=== PATIENT | female | born 1950 | race Caucasian/White ===

== ENCOUNTER 2017-02-08 08:00 | Inpatient (IN) | payer MEDICARE, OTHER ==
[~2017-02-08] VITALS: Ht 154.9 cm; Wt 71.3 kg
--- NOTE | ~2017-02-08 | DS ---
[facility]GE[facility] 66 Y [address] ROOM: [place] [address] LOCATION: [facility] ADMIT DATE: 02/15/2017 Discharge Summary DISCHARGE DATE: 02/17/2017 FAMILY PHYSICIAN: NICOLE LARSON ATTENDING PHYSICIAN: Jadon Zavaleta PRIMARY DIAGNOSIS: Osteoarthritis, right hip. SECONDARY DIAGNOSES: 1. Hyperlipidemia. 2. Depression. 3. History of anemia. 4. History of constipation. PROCEDURE PERFORMED: Right total hip arthroplasty. HISTORY: The patient is a 66-year-old female, who presents with advanced right hip degenerative joint disease and associated severely compromised activities of daily living. The patient has decided to proceed with total right hip arthroplasty after having been thoroughly counseled regarding the risks, benefits, limitations, and alternatives. Please refer to the outpatient clinic notes and admission history and physical for this patient. HOSPITAL COURSE: The patient underwent a total right hip arthroplasty on 02/15/2017 without complications. Spinal anesthesia plus subcutaneous and periarticular local anesthesia was utilized. The patient received 24 hours of perioperative prophylactic antibiotics and remained hemodynamically stable, neurovascularly intact throughout the entire hospital course. The postoperative prophylactic deep venous thrombosis prophylaxis consisted of Xarelto, early mobilization and pneumatic compression devices. Daily physical therapy for gait training, transfer training, and reinforcement of hip dislocation precautions were received. The patient progressed well in physical therapy. On the date of discharge, 02/17/2017, the incision at the hip was healing well and showed no signs of infection. DISPOSITION: DISCHARGE ACTIVITY: The patient is to bear weight as tolerated with strict hip dislocation precautions as instructed. There are to be no dressing changes. Dr. Zavaleta is to be notified immediately if there is any increased pain, fevers, chills, erythema, or drainage. DISCHARGE MEDICATIONS: 1. Xarelto 10 mg 1 tablet p.o. daily for 12 days for postoperative DVT prophylaxis. PATIENT'S NAME: DAVE [facility]URDA [facility] AGE: 66 Y [address] ROOM: [place] [address] LOCATION: [facility] ADMIT DATE: 02/15/2017 Discharge Summary DISCHARGE DATE: 02/17/2017 FAMILY PHYSICIAN: NICOLE LARSON ATTENDING PHYSICIAN: Jadon Zavaleta 2. Percocet 5/325 mg 1 to 2 tablets p.o. every 4 hours p.r.n. for pain. 3. Zofran 8 mg 1 tablet p.o. every 8 hours p.r.n. for nausea and vomiting. She was then instructed to continue all her other preadmission medications as instructed by her internal medicine doctor. FOLLOWUP: Followup appointment is to be with Dr. Zavaleta's office on 02/22/2017 for her initial postoperative evaluation. VINITA RUIZ PA-C FOR MD ALL MOURA/nancyl /[id number] d: 02/26/178 t: 02/27/17 1006, DISCHARGE SUMMARY
--- NOTE | ~2017-02-08 | OR ---
PATIENT'S NAME: VICKEY [facility] AGE: 66 Y [address] ROOM: [place] [address] LOCATION: [facility] ADMIT DATE: 02/15/2017 OR/Procedure Report DISCHARGE DATE: FAMILY PHYSICIAN: NICOLE LARSON ATTENDING PHYSICIAN: CODY COTTON SURGEON: Cody Cotton MD RESIDENTIAL INSURANCE INSPECTOR: 1. DAT [place]. 2. Jacob Ponce CST/RADIAL SAW OPERATOR. DATE OF PROCEDURE: 02/15/2017 PRE-OP DIAGNOSIS: Primary osteoarthritis, right hip. POST-OP DIAGNOSIS: Primary osteoarthritis, right hip. OPERATION: Right total hip arthroplasty. ANESTHESIA: Spinal anesthesia plus subcutaneous and periarticular local anesthesia (ropivacaine with epinephrine and Toradol). ESTIMATED BLOOD LOSS: Approximately 250 mL. DRAIN: None. SPECIMEN: None. COMPLICATIONS: None. IMPLANTS: 1. Montgomery Trident Tritanium size 54 mm hemispherical uncemented acetabular shell with 1 dome hole cover and no screws. 2. Montgomery X3 neutral acetabular polyethylene liner with 36 mm inner diameter. 3. DePuy [place] size 7, high offset, uncemented femoral component. 4. A 36 mm diameter Biolox ceramic femoral head with +1.5 mm neck length. INDICATION FOR SURGERY: The patient is a 66-year-old female who presents with advanced right hip primary osteoarthritis and associated severely compromised activities of daily living. The patient has decided to proceed with hip replacement after having been thoroughly counseled regarding the associated risks, benefits, and limitations. We have specifically reviewed the risks and implications of infection, deep venous thrombosis, pulmonary embolism, mortality, neurovascular complications, blood transfusion (and associated potential for disease transmission or transfusion reaction), stiffness, instability, leg length discrepancy, mechanical deterioration of the components (due to wear and to loosening), and the potential need for PATIENT'S NAME: [facility] AGE: 66 Y [address] ROOM: [place] [address] LOCATION: [facility] ADMIT DATE: 02/15/2017 OR/Procedure Report DISCHARGE DATE: FAMILY PHYSICIAN: NICOLE LARSON ATTENDING PHYSICIAN: CODY COTTON. DESCRIPTION OF PROCEDURE: The patient was positioned in a lateral decubitus position with the right side up after administration of anesthesia and prophylactic antibiotics. An axillary roll was placed and the non-operative leg was well padded. The pelvis was locked perpendicularly to the floor on a pegboard. The right hip and entire operative extremity were prepped and draped with vigilant sterile technique. The patient's name as well as the intended operative side and procedure were confirmed with a verbal time-out involving myself, the circulating nurse, the scrub nurse, and the anesthesiologist. The right hip was approached through a standard posterolateral incision. The fascia masha and the gluteus anjali fascia were sharply divided in line with the overlying skin incision. The sciatic nerve was identified and was vigilantly protected throughout the entire case. The short external rotators and posterior capsule were divided from their respective femoral insertions and tagged with four #1 Ethibond sutures for later repair. The hip was posteriorly dislocated with combined flexion, adduction, and internal rotation. The femoral neck osteotomy was performed with an oscillating saw. Inspection of the femoral head demonstrated full-thickness loss of articular cartilage throughout its weightbearing surface. There was no femoral head collapse. There was a large osteophyte around the circumference of the femoral head-neck junction. Circumferential acetabular exposure was obtained. Examination of acetabulum demonstrated a large effusion consisting of benign-appearing translucent synovial fluid. There was a large medial acetabular osteophyte. There was a 2 cm synovial cyst adjacent to the lesser trochanter. There was an enlarged anterior acetabular labrum with degenerative tearing thereof. There was a small osteophyte at the inferior acetabulum. There was no dysplasia. Remnants of the acetabular labrum were sharply thoroughly excised. The acetabulum was sequentially progressively reamed up to 53 mm with hemispherical power reamers. The final acetabular shell was impacted into position in 20 degrees of anteversion and 45 degrees of inclination. An excellent press-fit was obtained. No supplemental dome screw fixation was necessary. A neutral trial liner was inserted. Attention was next focused upon femoral preparation. The femoral canal initiator was utilized. The femoral canal was reamed by hand to a size 5 and subsequently on power to a size 7 with tapered conical reamers. The size 7 reamer tightly engaged the endosteal cortex of the proximal femur. The femoral canal was subsequently sequentially progressively broached up to a PAT[facility]'S NAME: [facility] AGE: 66 Y [address] ROOM: [id number] [place], [place] [address] LOCATION: [facility] ADMIT DATE: 02/15/2017 OR/Procedure Report DISCHARGE DATE: FAMILY PHYSICIAN: NICOLE LARSON ATTENDING PHYSICIAN: CODY COTTON size 7. The size 7 broach obtained excellent axial and rotational stability. Trial reductions with the above specified construct yielded acceptable stability and acceptable reproduction of leg length and offset. All trial components were removed. The final acetabular liner was inserted with excellent circumferential visualization of its locking mechanism to assure adequate deployment. The final femoral component was impacted into position. The femoral component achieved excellent axial and rotational stability. The trunnion of the femoral component was vigilantly protected prior to placement of the femoral head. The trunnion of the femoral component was thoroughly cleaned and dried prior to placement of the femoral head. The incision was thoroughly irrigated with bacteriostatic pulsatile saline lavage multiple times throughout the case. The entire joint space was thoroughly inspected and thoroughly irrigated to assure that there was no residual debris of any sort. A final reduction was then performed. After final reduction, the hip could be firmly externally rotated in full extension and zero degrees of abduction without anterior subluxation. In neutral rotation and zero degrees of abduction, the hip could be firmly flexed to 120 degrees without instability. At 90 degrees of flexion and zero degrees abduction, the hip could be internally rotated to 65 degrees before there was any hint of posterior subluxation. The posterior capsule and short external rotators were repaired through two drill holes in the posterior aspect of the greater trochanter. The fascia masha and gluteus anjali fascia were closed with multiple simple and [id number] interrupted # 1 Ethibond and #1 Vicryl sutures. Subcutaneous tissues were thoroughly re-irrigated with bacteriostatic pulsatile saline lavage. Subcutaneous tissues were re-approximated with simple buried interrupted #0 Vicryl sutures. The skin was closed with superficial buried interrupted 2-0 Vicryl sutures followed by a running subcuticular 3-0 Monocryl suture, followed by Octylseal, followed by Steri- Strips with benzoin, followed by an occlusive Mepilex dressing. There were no intra-operative complications. It should be noted that the physician's certified nursing assistant instructor played an active, integral role throughout this entire operation. By providing expert retraction, they greatly facilitated and expedited safe and effective exposure of the proximal femur and acetabulum for preparation and implantation of the components. They were also actively involved in the patient's positioning, prepping and draping, as well as wound closure. PATIENT'S NAME: [facility] AGE: 66 Y [address] [place] [address] LOCATION: [facility] ADMIT DATE: 02/15/2017 OR/Procedure Report DISCHARGE DATE: FAMILY PHYSICIAN: NICOLE LARSON ATTENDING PHYSICIAN: CODY COTTON MD KORY MOURA/rachele /[id number] d: 02/15/172120 t: 02/19/17 0752, OPERATIVE SUMMARY
[2017-02-09] MEDS ORDERED: PAXIL20 MG PO (10:27)
[2017-02-09] MEDS ORDERED: SIMVASTATIN40 MG PO (10:27)
[2017-02-09] MEDS ORDERED: THERA-VITE W/ B1 TAB PO (10:29)
[2017-02-09] MEDS ORDERED: AMOXICILLIN500 MG PO (10:29)
[2017-02-09] MEDS ORDERED: SUDAFED30 MG PO (10:29)
[2017-02-09] MEDS ORDERED: CALCIUM 600 +1 EAC6 PO (10:30)
[2017-02-09] MEDS ORDERED: VITAMIN E400 UNI2 PO (10:31)
[2017-02-09] MEDS ORDERED: PAPAYA ENZYME1 EACH PO (10:33)
[2017-02-09] MEDS ORDERED: MIRALAX17 GM PO (10:33)
[2017-02-09] MEDS ORDERED: REFRESH PLUS1 EACH OPHTH (10:35)
[2017-02-09] MEDS ORDERED: BIPAP INH (10:36)
--- NOTE | 2017-02-16 04:46 | NUR ---
Pt hypotensive, received two 1 L bolus last one started at 0400. Pt up one assist to commode. Pt complained of dizziness when standing. Orthostatic bps 92/56 flat, 80/48 sitting, 76/46 standing. Pt voiding w/o difficulty. Dressing C/D/I. CSM's intact. CPAP at night, on room air.
[2017-02-16 05:30] LABS: HEMATOCRIT 27.7 % (33.0-46.0); HEMOGLOBIN 9.4 g/dL (10.0-15.0)
--- NOTE | 2017-02-16 09:15 | NUR ---
Introduced self/role to patient. She lives with her in [place]. Everything she will need is on the main level. Her walk in shower just got installed. Has all the other DME she thinks she will need. Added my name to her marker board. She plans to go home tomorrow.
--- NOTE | 2017-02-16 13:44 | NUR ---
Significant Event: AOx3. C/O dizziness and nausea. Hypotensive all day. 500ml NS bolus given at 1123. Patient has been out of bed once early this morning to bedside commode. B/P 80's-90's/40's. No pain meds given. Lorena switched her pain medicine to Percocet. Dressing C/D/I. Follow up:
--- NOTE | 2017-02-17 04:48 | NUR ---
Pt's systolic bp 90-99. Pt states she gets a little lightheaded when standing, but it is better than Wednesday night. Pt up one assist to commode. Scheduled tylenol for pain. Home bipap at night. Dressign C/D/I. CSM's intact. Pt had one scant-small bm.
[2017-02-17] MEDS ORDERED: TYLENOL EXTRA500 MG PO (12:47)
[2017-02-17] MEDS ORDERED: COLACE100 MG PO (12:48)
[2017-02-17] MEDS ORDERED: XARELTO10 MG PO (12:49)
[2017-02-17] MEDS ORDERED: ZOFRAN4 MG PO (12:50)
[2017-02-17] MEDS ORDERED: PERCOCET 5-3251 EACH PO (12:51)
--- NOTE | 2017-02-17 14:20 | NUR ---
D: PATIENT ALERT AND ORIENTED X3. MEPILEX DRESSING TO R) HIP C/D/I. CSM ASSESSMENTS WNL TO R) LOWER EXTREMITY. RATES R) HIP PAIN 2-0 ON PAIN SCALE, PAIN WELL CONTROLLED WITH ROUTINE TYLENOL EXTRA STRENGTH GIVEN LAST AT 1118. AMBULATES TO BATHROOM, IN [place] AND UP TO CHAIR WITH SBA, USE OF WALKER/GAIT BELT. BILATERAL KNEE HIGH FARHANA'S ON. VSS 98.3, 16, 64, 111/55, 98% ON RA. DISCHARGE INSTRUCTIONS REVIEWED WITH PATIENT AND , VERBALIZES UNDERSTANDING. PATIENT DISMISSED TO HOME, ACCOMPANIED BY . ASSISTED TO VEHICLE VIA W/C AND TA ASSISTANCE. DISMISSED WITH PERSONAL BELONGINGS.
== END 2017-02-17 14:20 | disposition disaster alternative care site (69) | DRG 470 ==
LOC: G3N 02-15 10:58
PROVIDERS: Physician Assistant Surgical; ADMIT Orthopaedic Surgery
PROC: 0SR904A Replacement of Right Hip Joint with Ceramic on Polyethylene Synthetic Substitute, Uncemented, Open Approach (ICD-10-PCS; principal; 2017-02-15)
DX: M16.11 Unilateral primary osteoarthritis, right hip (principal); I95.81 Postprocedural hypotension; Z96.642 Presence of left artificial hip joint; F32.9 Major depressive disorder, single episode, unspecified; E78.5 Hyperlipidemia, unspecified; G47.33 Obstructive sleep apnea (adult) (pediatric); R10.13 Epigastric pain; Z87.891 Personal history of nicotine dependence
CPT/HCPCS: C1776; J0690; J1100; J1885; J2001; J2405; J2795; J7030; J7120